=== PATIENT | female | born 1940 | race African-American/Black ===

== ENCOUNTER → 2017-12-23 | Outpatient (CLI) | payer MEDICARE, OTHER | END | disposition home or self-care (01) | LOC: RAD 11:43 | DX: S12.490D Other displaced fracture of fifth cervical vertebra, subsequent encounter for fracture with routine healing (principal); X58.XXXD Exposure to other specified factors, subsequent encounter | CPT/HCPCS: 72040 ==

== ENCOUNTER → 2018-02-02 | Outpatient (CLI) | payer MEDICARE, OTHER | END | disposition home or self-care (01) | LOC: CT 13:22 | DX: S12.490D Other displaced fracture of fifth cervical vertebra, subsequent encounter for fracture with routine healing (principal); X58.XXXD Exposure to other specified factors, subsequent encounter | CPT/HCPCS: 72125 ==

== ENCOUNTER → 2018-05-31 | Outpatient (CLI) | payer MEDICARE, OTHER ==
--- NOTE | 2018-05-31 17:29 | RAD ---
CT of the cervical spine without contrast, 05/31/2018: HISTORY: Follow-up displaced fracture Noncontrast scans were obtained with multiplanar reconstructions produced. Comparison is made to a study from 02/02/2018. There has been previous resection of the C5 and C6 vertebral bodies with placement of a rectangular surgical implant at the vertebral body levels. There is an adjacent anterior surgical plate attached to the C4 and C7 vertebral bodies via 2 screws at each level. The surgical implant at the vertebral body levels is tilted anteriorly, unchanged since 02/02/2018. There are bilateral posterior fixation rods with screws extending into the posterior elements at C2, C3, C6, C7 and T1. The C2-3 and C3-4 facet joints are fused. There are degenerative changes involving multiple facet joints in the mid and lower cervical spine. Some of these lower cervical facet joints may be partially fused. No facet dislocation is seen. Artifacts arising from the fixation devices degrade image quality. No high-grade central spinal stenosis is evident. The vertebral alignment appears unchanged since 02/02/2018. IMPRESSION: 1. Stable anterior and posterior spinal fusions with instrumentation and previous corpectomy at C5 and C6 as described above. 2. No evidence of high-grade spinal stenosis. 3. No new abnormality is detected. PQRS Compliance Statement: One or more of the following individualized dose reduction techniques were utilized for this examination: 1. Automated exposure control 2. Adjustment of the mA and/or kV according to patient size 3. Use of iterative reconstruction technique Electronically signed by: Kyle Angelo MD (05/31/2018 5:26 PM) [facility]
== END | disposition home or self-care (01) ==
LOC: CT 10:29
DX: S12.490D Other displaced fracture of fifth cervical vertebra, subsequent encounter for fracture with routine healing (principal); M47.892 Other spondylosis, cervical region; M43.22 Fusion of spine, cervical region; X58.XXXD Exposure to other specified factors, subsequent encounter
CPT/HCPCS: 72125

== ENCOUNTER → 2019-02-17 | Outpatient (CLI) | payer MEDICARE, OTHER ==
[~2019-02-17] VITALS: Ht 154.9 cm; Wt 45.4 kg
[~2019-02-17] MED LIST: AMLO10TA8 PO; SINCALIDE 0.9 MCG in IV NORMAL SALINE 50ML 30 ML IV ONE
--- NOTE | 2019-02-17 15:13 | RAD ---
HEPATOBILIARY SCAN WITH EJECTION FRACTION 02/17/2019 3:09 PM History: Nausea, vomiting, epigastric pain Procedure: Serial static images are obtained of the liver and biliary system in the frontal projection following IV administration of 5.5 mCi of Technetium 99m Choletec. After filling of the gallbladder, 0.9 mcg of sincalide were infused over 30 minutes and dynamic imaging continued over this period. The gallbladder ejection fraction was calculated. Findings: There is prompt hepatic clearance of tracer from the blood pool. There is homogeneous distribution throughout the liver. The gallbladder ejection fraction measures 51% (normal gallbladder EF is 35% or greater). IMPRESSION: 1. The cystic duct and common bile duct are patent. Negative for acute cholecystitis. 2. The gallbladder ejection fraction is within normal limits Electronically signed by: Zia Zee MD (02/17/2019 3:10 PM) [id number]
--- NOTE | 2019-02-17 16:04 | RAD ---
Limited right upper quadrant abdominal ultrasound 02/17/2019 INDICATION: Nausea, vomiting, epigastric pain COMPARISON STUDY: Hepatobiliary scan, same day Discussion: Ultrasound evaluation of the right upper quadrant was performed. Static images are submitted to PACS. The pancreas is unremarkable in appearance. Visualized aorta and IVC are unremarkable in appearance. Visualized liver is grossly unremarkable in appearance. The liver is normal in size measuring 13 cm longitudinally. No intrahepatic biliary dilatation is identified. Portal vein is grossly patent. The gallbladder demonstrates no evidence of wall thickening, stones, or sludge. The common bile duct is 3 mm in diameter. The right kidney is nonvisualized. Multiple cystic structures involving the left kidney are seen. This could represent marked hydronephrosis, multiple large cysts, or combination there of. Patient is noted to be a chronic renal disease and is dialysis dependent according to technologist's notes. IMPRESSION: 1. Nonvisualization right kidney. Multiple cystic structures involving the left kidney which could be multiple cysts are severe hydronephrosis, or combination there of. Consider abdominal CT imaging as clinically indicated. 2. Grossly unremarkable appearance of the liver and gallbladder Electronically signed by: Zia Zee MD (02/17/2019 4:01 PM) [id number]
== END | disposition home or self-care (01) ==
LOC: US 10:52
PROVIDERS: ATTEND Internal Medicine Gastroenterology
DX: R10.13 Epigastric pain (principal); R11.2 Nausea with vomiting, unspecified; N18.9 Chronic kidney disease, unspecified; Z99.2 Dependence on renal dialysis
CPT/HCPCS: 76705; 78227; A9537; J2805

== ENCOUNTER 2019-09-02 15:35 | Emergency (ER) | payer MEDICARE, OTHER ==
[~2019-09-02] VITALS: Ht 160 cm; Wt 63.5 kg
[~2019-09-02 15:35] MED LIST changes: -SINCALIDE 0.9 MCG in IV NORMAL SALINE 50ML 30 ML IV ONE
[2019-09-02 15:48] VITALS: BP 150/66
--- NOTE | 2019-09-02 16:10 | PHYS DOC ---
Past Medical History Past Medical History: Anxiety, Diabetes-Type II, High Cholesterol, Renal Failure Additional Past Medical Histor: POOR HISTORIAN, hypotension, Iron deficiency anemia, ESRD Past Surgical History: Other Additional Past Surgical Histo: DIALYSIS FISTULA LUE Alcohol Use: None Drug Use: None Adult General Chief Complaint Chief Complaint: ABNORMAL LABS HPI HPI Patient is a 79 year old female from nursing presents via EMS with PMH of ESRD, Iron defiency anemia, Renal failure who presents with abnormal Hgb (unsure specific value). Pt seems confused, only alert and oriented to person. Otherwise, pt has no other complained. Limited history to due pt's AMS. Review of Systems Review of Systems Limited review of systems due to patient's AMS. Allergies Allergies Allergies Coded Allergies Type Severity Reaction Last Updated Verified No Known Drug Allergies 02/17/19 No Physical Exam Physical Exam Constitutional: Well developed, well nourished, no acute distress, non-toxic appearance. [] HENT: Normocephalic, atraumatic, bilateral external ears normal, oropharynx moist, no oral exudates, nose normal. [] Eyes: PERRLA, EOMI, conjunctiva normal, no discharge. [] Neck: Normal range of motion, no tenderness, supple, no stridor. [] Cardiovascular:Heart rate regular rhythm, +3 systolic murmur Lungs & Thorax: Bilateral breath sounds clear to auscultation [] Abdomen: Bowel sounds normal, soft, no tenderness, no masses, no pulsatile masses. [] Skin: Warm, dry, no erythema, no rash. [] Back: No tenderness, no CVA tenderness. +6 midline scars from T1-6 region[] Extremities: No tenderness, no cyanosis, no clubbing, ROM intact, no edema. [] Neurologic: Alert and oriented X 3, normal motor function, normal sensory function, no focal deficits noted. [] Psychologic: Affect normal, judgement normal, mood normal. [] Current Patient Data Vital Signs Vital Signs Date Time Temp Pulse Resp B/P (MAP) Pulse Ox O2 Delivery O2 Flow Rate FiO2 09/02/19 15:48 98.1 60 19 150/66 (94) 98 Room Air 98.1 Lab Values Laboratory Tests Test 09/02/19 16:11 White Blood Count 4.7 x10^3/uL (4.0-11.0) Red Blood Count 2.74 x10^6/uL (3.50-5.40) L Hemoglobin 8.3 g/dL (12.0-15.5) L Hematocrit 24.9 % (36.0-47.0) L Mean Corpuscular Volume 91 fL (79-100) Mean Corpuscular Hemoglobin 30 pg (25-35) Mean Corpuscular Hemoglobin Concent 33 g/dL (31-37) Red Cell Distribution Width 14.4 % (11.5-14.5) Platelet Count 189 x10^3/uL (140-400) Neutrophils (%) (Auto) 66 % (31-73) Lymphocytes (%) (Auto) 24 % (24-48) Monocytes (%) (Auto) 8 % (0-9) Eosinophils (%) (Auto) 2 % (0-3) Basophils (%) (Auto) 0 % (0-3) Neutrophils # (Auto) 3.1 x10^3/uL (1.8-7.7) Lymphocytes # (Auto) 1.1 x10^3/uL (1.0-4.8) Monocytes # (Auto) 0.4 x10^3/uL (0.0-1.1) Eosinophils # (Auto) 0.1 x10^3/uL (0.0-0.7) Basophils # (Auto) 0.0 x10^3/uL (0.0-0.2) Prothrombin Time 13.5 SEC (11.7-14.0) Prothrombin Time INR 1.1 (0.8-1.1) Activated Partial Thromboplast Time 32 SEC (24-38) Sodium Level 143 mmol/L (136-145) Potassium Level 4.4 mmol/L (3.5-5.1) Chloride Level 101 mmol/L (98-107) Carbon Dioxide Level 33 mmol/L (21-32) H Anion Gap 9 (6-14) Blood Urea Nitrogen 35 mg/dL (7-20) H Creatinine 6.4 mg/dL (0.6-1.0) H Estimated GFR (Cockcroft-Gault) 7.6 BUN/Creatinine Ratio 5 (6-20) L Glucose Level 132 mg/dL (70-99) H Lactic Acid Level 1.1 mmol/L (0.4-2.0) Calcium Level 10.7 mg/dL (8.5-10.1) H Magnesium Level 2.5 mg/dL (1.8-2.4) H Total Bilirubin 0.4 mg/dL (0.2-1.0) Aspartate Amino Transferase (AST) 23 U/L (15-37) Alanine Aminotransferase (ALT) 24 U/L (14-59) Alkaline Phosphatase 179 U/L (46-116) H Ammonia < 10 mcmol/L (11-34) L Creatine Kinase 53 U/L (26-192) Creatine Kinase MB (Mass) 0.9 ng/mL (0.0-3.6) Creatine Kinase MB Relative Index % (0-4) Troponin I Quantitative < 0.017 ng/mL (0.000-0.055) Total Protein 6.9 g/dL (6.4-8.2) Albumin 3.5 g/dL (3.4-5.0) Albumin/Globulin Ratio 1.0 (1.0-1.7) Lipase 263 U/L (73-393) Laboratory Tests 09/02/19 16:11 Laboratory Tests 09/02/19 16:11 EKG EKG [] Radiology/Procedures Radiology/Procedures [] Course & Med Decision Making Course & Med Decision Making Pertinent Labs and Imaging studies reviewed. (See chart for details) Patient is a 79 year old female from nursing presents via EMS with PMH of ESRD, Iron defiency anemia, Renal failure who presents with abnormal Hgb (unsure specific value).DDX: Metabolic derangement, Anemia- Iron deficiency vs chronic disease (ESRD), UTI, PNA, sepsis, head trauma. Will order labs, CT head, CXR, EKG. Pt is stable. Will reassess. Labs are unremarkable with Hgb of 8.3. Likely due to her Anemia of Chronic disease. CT and CXR are negative for acute process. Her mentation is most likely at her baseline since CT suggested some chronic lacunar infarct in the left thalamus and chornic microangiopathic white matter changes elsewhere. Pt is stable, has no other complaints. Will discharge pt. Dragon Disclaimer Dragon Disclaimer This electronic medical record was generated, in whole or in part, using a voice recognition dictation system. Departure Departure Impression: Primary Impression: Anemia Additional Impression: ESRD (end stage renal disease) on dialysis Disposition: HOME, SELF-CARE Condition: STABLE Referrals: STEPHANIE RAYMUNDO MD (PCP) MALLORY SPENCER MD Patient Instructions: Anemia, FAQs Problem Qualifiers Primary Impression: Anemia Anemia type: unspecified type Qualified Codes: D64.9 - Anemia, unspecified TOYA LOZOYA DO Sep 02, 2019 16:10
--- NOTE | 2019-09-02 16:16 | PHYS DOC ---
Past Medical History Past Medical History: Anxiety, CHF, COPD, Diabetes-Type II, High Cholesterol, Hypertension, Renal Failure Additional Past Medical Histor: POOR HISTORIAN Past Surgical History: Other Additional Past Surgical Histo: DIALYSIS FISTULA LUE Alcohol Use: None Drug Use: None Adult General Chief Complaint Chief Complaint: ABNORMAL LABS HPI HPI Patient is a 79 year old female with past medical history of COPD, CHF, and diabetes, who presents with altered mental status and abnormal labs after being screened at her shelter. The shelter was primarily concerned with elevated LFT's on her labs. The patient is complaining of diaphoresis, fatigue, and shortness of breath that began yesterday. In addition, she has some mild, right upper quadrant abdominal pain that is described as dull, constant, and unrelieved by any position change. She has intermittent nausea but no vomiting. She denies any diarrhea, dysuria, frequency, or urgency. Review of Systems Review of Systems Constitutional: Reports subjective fevers and chills Eyes: Denies redness or eye pain HENT: Denies nasal congestion or sore throat Respiratory: Reports cough and SOB Cardiovascular: Denies chest pain or palpitations GI: Reports RUQ abdominal pain and nausea, but no vomiting : Denies dysuria or hematuria Musculoskeletal: Denies back pain or joint pain Integument: Denies rash or skin lesions Neurologic: Denies headache, focal weakness or sensory changes Complete systems were reviewed and found to be within normal limits, except as documented in this note. Allergies Allergies Allergies Coded Allergies Type Severity Reaction Last Updated Verified No Known Drug Allergies 02/17/19 No Physical Exam Physical Exam Constitutional: Confused, obese 79 yo female in mild distress. HENT: Normocephalic, atraumatic, oropharynx dry Eyes: conjunctiva normal, no discharge Cardiovascular: Heart rate normal, regular rhythm. 2/6 systolic murmur. Lungs & Thorax: diffuse wheezing b/l. No crackles or consolidations. Abdomen: Soft, TTP in RUQ. Negative lacy's sign. Skin: Warm, diaphoretic. No rashes. Back: No tenderness, no CVA tenderness Extremities: No tenderness, ROM intact, no edema Neurologic: Alert and oriented X 3, normal motor function, normal sensory function, no focal deficits noted Psychologic: Affect normal, judgement normal, mood normal Current Patient Data Vital Signs Vital Signs Date Time Temp Pulse Resp B/P (MAP) Pulse Ox O2 Delivery O2 Flow Rate FiO2 09/02/19 15:48 98.1 60 19 150/66 (94) 98 Room Air 98.1 Lab Values Laboratory Tests Test 09/02/19 16:11 White Blood Count 4.7 x10^3/uL (4.0-11.0) Red Blood Count 2.74 x10^6/uL (3.50-5.40) L Hemoglobin 8.3 g/dL (12.0-15.5) L Hematocrit 24.9 % (36.0-47.0) L Mean Corpuscular Volume 91 fL (79-100) Mean Corpuscular Hemoglobin 30 pg (25-35) Mean Corpuscular Hemoglobin Concent 33 g/dL (31-37) Red Cell Distribution Width 14.4 % (11.5-14.5) Platelet Count 189 x10^3/uL (140-400) Neutrophils (%) (Auto) 66 % (31-73) Lymphocytes (%) (Auto) 24 % (24-48) Monocytes (%) (Auto) 8 % (0-9) Eosinophils (%) (Auto) 2 % (0-3) Basophils (%) (Auto) 0 % (0-3) Neutrophils # (Auto) 3.1 x10^3/uL (1.8-7.7) Lymphocytes # (Auto) 1.1 x10^3/uL (1.0-4.8) Monocytes # (Auto) 0.4 x10^3/uL (0.0-1.1) Eosinophils # (Auto) 0.1 x10^3/uL (0.0-0.7) Basophils # (Auto) 0.0 x10^3/uL (0.0-0.2) Prothrombin Time 13.5 SEC (11.7-14.0) Prothrombin Time INR 1.1 (0.8-1.1) Activated Partial Thromboplast Time 32 SEC (24-38) Sodium Level 143 mmol/L (136-145) Potassium Level 4.4 mmol/L (3.5-5.1) Chloride Level 101 mmol/L (98-107) Carbon Dioxide Level 33 mmol/L (21-32) H Anion Gap 9 (6-14) Blood Urea Nitrogen 35 mg/dL (7-20) H Creatinine 6.4 mg/dL (0.6-1.0) H Estimated GFR (Cockcroft-Gault) 7.6 BUN/Creatinine Ratio 5 (6-20) L Glucose Level 132 mg/dL (70-99) H Lactic Acid Level 1.1 mmol/L (0.4-2.0) Calcium Level 10.7 mg/dL (8.5-10.1) H Magnesium Level 2.5 mg/dL (1.8-2.4) H Total Bilirubin 0.4 mg/dL (0.2-1.0) Aspartate Amino Transferase (AST) 23 U/L (15-37) Alanine Aminotransferase (ALT) 24 U/L (14-59) Alkaline Phosphatase 179 U/L (46-116) H Creatine Kinase 53 U/L (26-192) Creatine Kinase MB (Mass) 0.9 ng/mL (0.0-3.6) Creatine Kinase MB Relative Index % (0-4) Troponin I Quantitative < 0.017 ng/mL (0.000-0.055) Total Protein 6.9 g/dL (6.4-8.2) Albumin 3.5 g/dL (3.4-5.0) Albumin/Globulin Ratio 1.0 (1.0-1.7) Lipase 263 U/L (73-393) Laboratory Tests 09/02/19 16:11 Laboratory Tests 09/02/19 16:11 EKG EKG [] Radiology/Procedures Radiology/Procedures [] Course & Med Decision Making Course & Med Decision Making Patient is a 79-year-old female with past medical history of diabetes mellitus, hypertension, COPD, and who presents with altered mental status and abnormal labs from her shelter. The patient is diaphoretic and short of breath upon arrival. However, she is currently satting at 94% on 4 L of oxygen. Due to concern for hepatic encephalopathy, ammonia levels were drawn and found to be CT of the head demonstrated that family milliliters normal saline given to improve hydration status. Dragon Disclaimer Dragon Disclaimer This electronic medical record was generated, in whole or in part, using a voice recognition dictation system. Departure Departure Referrals: STEPHANIE RAYMNUDO MD (PCP) TOYA LOZOYA DO Sep 02, 2019 16:16
--- NOTE | 2019-09-02 16:28 | RAD ---
Single view of the chest. 09/02/2019 3:58 PM Indication: Altered mental status Comparison: None available Findings: The heart is enlarged. Prior median sternotomy noted. Left axillary stent is noted. Mild central vascular congestion appears to be present. Left upper extremity vascular stent noted. Patient is likely on chronic hemodialysis. Extensive vascular calcification is seen. No pneumothorax or pleural effusion is seen. Right-sided chest wall deformity suggesting prior rib fractures noted. No definitively acute osseous abnormality is not identified. IMPRESSION: 1. Cardiomegaly, and mild central vascular congestion, in this patient with probable chronic renal failure necessitating dialysis 2. Chronic appearing right-sided chest wall deformity. Electronically signed by: Zia Zee MD (09/02/2019 4:25 PM) [id number]
[2019-09-02 16:35] LABS: BASO % 0 % (0-3); EOS # 0.1 x10^3/uL (0.0-0.7); EOS % 2 % (0-3); HEMATOCRIT 24.9 % (36.0-47.0); HEMOGLOBIN 8.3 g/dL (12.0-15.5); LYMPH # 1.1 x10^3/uL (1.0-4.8); LYMPH % 24 % (24-48); MEAN CORPUSCULAR HEMOGLOBIN 30 pg (25-35); MEAN CORPUSCULAR HGB CONC 33 g/dL (31-37); MEAN CORPUSCULAR VOLUME 91 fL (79-100); MONO # 0.4 x10^3/uL (0.0-1.1); MONO % 8 % (0-9); NEUT # 3.1 x10^3/uL (1.8-7.7); NEUT % 66 % (31-73); PLATELET COUNT 189 x10^3/uL (140-400); RED BLOOD COUNT 2.74 x10^6/uL (3.50-5.40); RED CELL DISTRIBUTION WIDTH 14.4 % (11.5-14.5); WHITE BLOOD COUNT 4.7 x10^3/uL (4.0-11.0)
[2019-09-02 16:40] LABS: PROTHROMBIN TIME PATIENT 13.5 SEC (11.7-14.0)
[2019-09-02 16:47] LABS: CALCIUM 10.7 mg/dL (8.5-10.1); CREATININE 6.4 mg/dL (0.6-1.0); GFR 7.6; POTASSIUM 4.4 mmol/L (3.5-5.1)
--- NOTE | 2019-09-02 16:54 | RAD ---
EXAM: CT HEAD WITHOUT CONTRAST. HISTORY: Altered mental status. TECHNIQUE: Computed tomography of the head was performed without intravenous contrast. One or more of the following individualized dose reduction techniques were utilized for this examination: 1. Automated exposure control. 2. Adjustment of the mA and/or kV according to patient size. 3. Use of iterative reconstruction technique. COMPARISON: None. FINDINGS: There is no intracranial hemorrhage. There is a chronic lacunar infarct in the left anterior thalamus. There is mild chronic microangiopathic white matter change elsewhere. Prominence of the lateral ventricles and hemispheric sulci indicates mild to moderate atrophy. There is a chronic a depressed fracture of the right lamina papyracea. There are air-fluid levels within the sphenoid sinus and the bilateral ethmoid air cells. There are changes of bilateral cataract surgery. There is moderate fluid in the right mastoid air cells. The calvarium reveals no suspicious lesions. There are dense atherosclerotic calcifications of the internal carotid and vertebral arteries. IMPRESSION: 1. No acute intracranial findings. 2. Chronic left thalamic infarct. Mild to moderate atrophy and chronic microangiopathic white matter change. 3. Acute on chronic ethmoid and sphenoid sinus disease. Electronically signed by: Ramakrishna Pittman MD (09/02/2019 4:51 PM) [email or web address]
[2019-09-02 16:57] LABS: ALBUMIN 3.5 g/dL (3.4-5.0); MAGNESIUM 2.5 mg/dL (1.8-2.4); TOTAL BILIRUBIN 0.4 mg/dL (0.2-1.0); TOTAL PROTEIN 6.9 g/dL (6.4-8.2)
[2019-09-02 16:58] LABS: CREATINE KINASE 53 U/L (26-192)
== END 2019-09-02 18:35 | disposition home or self-care (01) ==
LOC: ER 15:35
DX: D64.9 Anemia, unspecified (principal); E11.22 Type 2 diabetes mellitus with diabetic chronic kidney disease; N18.6 End stage renal disease; Z99.2 Dependence on renal dialysis; E78.00 Pure hypercholesterolemia, unspecified; Z86.2 Personal history of diseases of the blood and blood-forming organs and certain disorders involving the immune mechanism
CPT/HCPCS: 36415; 70450; 71045; 80053; 82140; 82553; 83605; 83690; 83735; 84484; 85025; 85610; 85730; 99285

== ENCOUNTER 2019-12-03 21:47 | Emergency (ER) | payer MEDICARE, OTHER ==
[~2019-12-03] VITALS: Ht 160 cm; Wt 45.0 kg
--- NOTE | 2019-12-03 22:02 | PHYS DOC ---
Past Medical History Past Medical History: Anxiety, CHF, COPD, Dementia, Diabetes-Type II, High Cholesterol, Hypertension, Renal Failure Additional Past Medical Histor: POOR HISTORIAN, hypotension, Iron deficiency anemia, ESRD Past Surgical History: Other Additional Past Surgical Histo: DIALYSIS FISTULA LUE Smoking Status: Never Smoker Alcohol Use: None Drug Use: None Adult General Chief Complaint Chief Complaint: MECHANICAL FALL HPI HPI 79-year-old dementia patient from a detention presents after an unwitnessed f all. They think she hit her head they're unsure if there was loss of consciousness. Patient is unable to provide any history but does not report any pain currently.[] Review of Systems Review of Systems Review of systems is unobtainable secondary to dementia. Allergies Allergies Allergies Coded Allergies Type Severity Reaction Last Updated Verified No Known Drug Allergies 02/17/19 No Physical Exam Physical Exam Constitutional: Well developed, well nourished, no acute distress, non-toxic appearance. [] HENT: Normocephalic, atraumatic, bilateral external ears normal, oropharynx moist, no oral exudates, nose normal. [] Eyes: PERRLA, EOMI, conjunctiva normal, no discharge. [] Neck: Normal range of motion, no tenderness, supple, no stridor. [] Cardiovascular:Heart rate regular rhythm, no murmur [] Lungs & Thorax: Bilateral breath sounds clear to auscultation [] Abdomen: Bowel sounds normal, soft, no tenderness, no masses, no pulsatile masses. [] Skin: Warm, dry, no erythema, no rash. [] Back: No tenderness, no CVA tenderness. [] Extremities: No tenderness, no cyanosis, no clubbing, ROM intact, no edema. [] Neurologic: Alert and not oriented At baseline, normal motor function, normal sensory function, no focal deficits noted. [] Psychologic: Affect normal, judgement normal, mood normal. [] Current Patient Data Vital Signs Vital Signs Date Time Temp Pulse Resp B/P (MAP) Pulse Ox O2 Delivery O2 Flow Rate FiO2 12/03/19 22:02 98.1 78 12 198/81 (120) 98 Room Air 98.1 EKG EKG [] Radiology/Procedures Radiology/Procedures [] Impressions: PROCEDURE: CT HEAD AND CERVICAL SPINE WO CT brain without contrast, CT cervical spine without contrast. HISTORY: Trauma CT brain CT scan of brain was done without contrast. Sinuses are clear. A skull fracture is not identified. There is mild diffuse atrophy. There is no intracranial hemorrhage or subdural hematoma. Ventricles are normal in size. There is no mass or shift of the midline. There is an old infarct in the left thalamus and left internal capsule. IMPRESSION: 1. Old left thalamus and internal capsule infarct. 2. no intracranial hemorrhage or subdural hematoma or other acute finding. End impression CT cervical spine. Axial CT images were obtained to the cervical spine. Sagittal and coronal reconstructed images were reviewed. Patient previous posterior cervical fusion. There are also changes from previous anterior cervical fusion. The patient's had a sternotomy. There is bony fusion at the facet level from C2 to C7. There is an bone graft anteriorly between C4 and C7. An acute C-spine fracture is not identified. The artifacts off the plates and screws limit evaluation. There is been increased bony fusion compared with a study from May 2018. Alignment is unchanged. IMPRESSION: 1. Changes from previous anterior posterior fusions. 2. No acute C-spine fracture. Course & Med Decision Making Course & Med Decision Making Pertinent Labs and Imaging studies reviewed. (See chart for details) [] Dragon Disclaimer Dragon Disclaimer This electronic medical record was generated, in whole or in part, using a voice recognition dictation system. Departure Departure Impression: Primary Impression: Fall at detention Disposition: 01 HOME, SELF-CARE Condition: STABLE Referrals: STEPHANIE RAYMUNDO MD (PCP) Patient Instructions: Fall Prevention and Home Safety Problem Qualifiers Primary Impression: Fall at detention Encounter type: initial encounter Qualified Codes: W19.XXXA - Unspecified fall, initial encounter; Y92.129 - Unspecified place in detention as the place of occurrence of the external cause JUDSON URENA DO Dec 03, 2019 22:02
--- NOTE | 2019-12-03 22:44 | RAD ---
CT brain without contrast, CT cervical spine without contrast. HISTORY: Trauma CT brain CT scan of brain was done without contrast. Sinuses are clear. A skull fracture is not identified. There is mild diffuse atrophy. There is no intracranial hemorrhage or subdural hematoma. Ventricles are normal in size. There is no mass or shift of the midline. There is an old infarct in the left thalamus and left internal capsule. IMPRESSION: 1. Old left thalamus and internal capsule infarct. 2. no intracranial hemorrhage or subdural hematoma or other acute finding. End impression CT cervical spine. Axial CT images were obtained to the cervical spine. Sagittal and coronal reconstructed images were reviewed. Patient previous posterior cervical fusion. There are also changes from previous anterior cervical fusion. The patient's had a sternotomy. There is bony fusion at the facet level from C2 to C7. There is an bone graft anteriorly between C4 and C7. An acute C-spine fracture is not identified. The artifacts off the plates and screws limit evaluation. There is been increased bony fusion compared with a study from May 2018. Alignment is unchanged. IMPRESSION: 1. Changes from previous anterior posterior fusions. 2. No acute C-spine fracture. Electronically signed by: Scott Cerrato MD (12/03/2019 10:40 PM) [id number]
[2019-12-04 00:18] VITALS: BP 160/70
== END 2019-12-04 00:20 | disposition home or self-care (01) ==
LOC: ER 21:47
DX: S09.90XA Unspecified injury of head, initial encounter (principal); E11.22 Type 2 diabetes mellitus with diabetic chronic kidney disease; I13.11 Hypertensive heart and chronic kidney disease without heart failure, with stage 5 chronic kidney disease, or end stage renal disease; I50.9 Heart failure, unspecified; J44.9 Chronic obstructive pulmonary disease, unspecified; E78.00 Pure hypercholesterolemia, unspecified; N18.6 End stage renal disease; Z99.2 Dependence on renal dialysis; W18.39XA Other fall on same level, initial encounter; Y93.89 Activity, other specified; Y92.89 Other specified places as the place of occurrence of the external cause; Y99.8 Other external cause status
CPT/HCPCS: 70450; 72125; 99285-25

== ENCOUNTER → 2019-12-15 | Emergency (ER) | payer MEDICARE, OTHER ==
[~2019-12-15] VITALS: Ht 162.6 cm; Wt 98.0 kg
[2019-12-15 21:29] VITALS: BP 156/86
--- NOTE | 2019-12-15 23:39 | ED.ADGEN ---
Past Medical History Past Medical History: Unknown Additional Past Medical Histor: POOR HISTORIAN, hypotension, Iron deficiency anemia, ESRD Past Surgical History: Other Additional Past Surgical Histo: DIALYSIS FISTULA LUE Smoking Status: Never Smoker Alcohol Use: None Drug Use: None Adult General Chief Complaint Chief Complaint: OTHER COMPLAINTS HPI HPI Patient is a 79 year old [facility] patient presents from outside snf facility who presents without chief complaint.of SOA patient is sensitive facility that has recovered virus. Patient has been tested and was found to be negative. CV no upon returning home from dialysis, the patient was accidentally dropped off at the [facility] facility. Upon discovering this, nursing unit coordinator immediately called EMS for the patient to be taken off premises. Patient did not request transfer to the ED, but according to EMS protocol this is the only as the patient could be brought. Patient is requesting transportation to the correct snf facility. Other than feeling cold due to the ambient temperature at the patient is without complaint and declines medical evaluation. [] Review of Systems Review of Systems ROS as per HPI. All other ROS are negative. Allergies Allergies Allergies Coded Allergies Type Severity Reaction Last Updated Verified No Known Drug Allergies 02/17/19 No Physical Exam Physical Exam Constitutional: Well developed, well nourished, no acute distress, non-toxic appearance. [] HENT: Normocephalic, atraumatic, bilateral external ears normal, oropharynx moist,, nose normal. [] Eyes: PERRLA, EOMI, conjunctiva normal. [] Neck: Normal range of motion, no tenderness, supple, no stridor. [] Cardiovascular:Heart rate regular rhythm, no murmur [] Lungs & Thorax: Bilateral breath sounds clear to auscultation [] Abdomen: Bowel sounds normal, soft, no tenderness, no masses, no pulsatile masses. [] Neurologic: Alert and oriented X 3, normal motor function, normal sensory function, no focal deficits noted. [] Psychologic: Affect normal, judgement normal, mood normal. [] Current Patient Data Vital Signs Vital Signs Date Time Temp Pulse Resp B/P (MAP) Pulse Ox O2 Delivery O2 Flow Rate FiO2 12/15/19 21:29 98.4 88 18 156/86 (109) 97 Room Air 98.4 EKG EKG [] Radiology/Procedures Radiology/Procedures [] Course & Med Decision Making Course & Med Decision Making Pertinent Labs and Imaging studies reviewed. (See chart for details) No complaints. Medical screening unremarkable. ] Dragon Disclaimer Dragon Disclaimer This electronic medical record was generated, in whole or in part, using a voice recognition dictation system. Departure Departure Impression: Primary Impression: Encounter for medical screening examination Disposition: HOME, SELF-CARE Condition: STABLE Referrals: STEPHANIE RAYMUNDO MD (PCP) KAYDEN MARTINEZ DO Dec 15, 2019 23:39
== END ==
LOC: ER 21:26
DX: R06.02 Shortness of breath (principal); N18.6 End stage renal disease; Z99.2 Dependence on renal dialysis
CPT/HCPCS: 99284

== ENCOUNTER 2019-12-20 12:36 | Emergency (ER) | payer MEDICARE, OTHER ==
[~2019-12-20] VITALS: Ht 152.4 cm; Wt 43.0 kg
[2019-12-20] MEDS ORDERED: IV NORMAL SALINE 1000ML BAG 1,000 ML IV ONE (13:00)
[2019-12-20 13:12] LABS: BASO % 1 % (0-3); EOS % 0 % (0-3); HEMATOCRIT 42.5 % (36.0-47.0); HEMOGLOBIN 13.6 g/dL (12.0-15.5); LYMPH # 0.6 x10^3/uL (1.0-4.8); LYMPH % 15 % (24-48); MEAN CORPUSCULAR HEMOGLOBIN 28 pg (25-35); MEAN CORPUSCULAR HGB CONC 32 g/dL (31-37); MEAN CORPUSCULAR VOLUME 86 fL (79-100); MONO # 0.2 x10^3/uL (0.0-1.1); MONO % 6 % (0-9); NEUT # 3.3 x10^3/uL (1.8-7.7); NEUT % 79 % (31-73); PLATELET COUNT 124 x10^3/uL (140-400); RED BLOOD COUNT 4.95 x10^6/uL (3.50-5.40); RED CELL DISTRIBUTION WIDTH 16.7 % (11.5-14.5); WHITE BLOOD COUNT 4.2 x10^3/uL (4.0-11.0)
--- NOTE | 2019-12-20 13:22 | EKG ---
[facility] [address] [place] [address] Test Date: 2019-12-20 Test Time: 12:48:14 Pat Name: JYOTI BARNEY Department: Room: Gender: F Continuing Education Director: : 1940 Requested By: PAYAM JOSUE Order Number: [id number] Reading MD: Shay Gutierrez Measurements Intervals [place] Rate: 69 P: [place]: QRS: 112 QRSD: 100 T: 172 QT: 402 QTc: 436 Interpretive Statements SINUS RHYTHM ABNORMAL RIGHT AXIS DEVIATION INCOMPLETE RIGHT BUNDLE BRANCH BLOCK QRS(T) CONTOUR ABNORMALITY CONSIDER HIGH LATERAL INFARCT ST & T ABNORMALITY, CONSIDER INFERIOR ISCHEMIA OR LEFT VENTRICULAR STRAIN ABNORMAL ECG No previous ECG available for comparison Electronically Signed On 12-21-2019 8:44:16 CDT by Shay Gutierrez
[2019-12-20 13:28] LABS: CALCIUM 8.9 mg/dL (8.5-10.1); CREATININE 11.2 mg/dL (0.6-1.0); POTASSIUM 4.5 mmol/L (3.5-5.1)
--- NOTE | 2019-12-20 13:28 | PHYS DOC ---
Past Medical History Past Medical History: Unknown Additional Past Medical Histor: POOR HISTORIAN, hypotension, Iron deficiency anemia, ESRD Past Surgical History: Other Additional Past Surgical Histo: DIALYSIS FISTULA LUE Smoking Status: Never Smoker Alcohol Use: None Drug Use: None General Adult EDM: Chief Complaint: DIALYSIS PROBLEM HPI: HPI: Patient is a 79 year old female with history of end-stage kidney disease on dialysis Thu, Thu, Thursday currently residing at [facility] COVID 19 + who presents to the ED today to be dialyzed. Per [facility]iary staff patient missed dialysis yesterday because the dialyze center she goes to could not dialyze her because she is COVID19 positive. Patient is demented and a very poor historian. She has no complaint. Review of Systems: Review of Systems: Constitutional: Denies fever or chills. [] Eyes: Denies change in visual acuity. [] HENT: Denies nasal congestion or sore throat. [] Respiratory: Denies cough or shortness of breath. [] Cardiovascular: Denies chest pain or edema. [] GI: Denies abdominal pain, nausea, vomiting, bloody stools or diarrhea. [] : Denies dysuria. [] Musculoskeletal: Denies back pain or joint pain. [] Integument: Denies rash. [] Neurologic: Denies headache, focal weakness or sensory changes. [] Endocrine: ESRD Psychiatric: Denies depression or anxiety. [] Heart Score: Risk Factors: Risk Factors: DM, Current or recent (<one month) smoker, HTN, HLP, family history of CAD, obesity. Risk Scores: Score 0 - 3: 2.5% MACE over next 6 weeks - Discharge Home Score 4 - 6: 20.3% MACE over next 6 weeks - Admit for Clinical Observation Score 7 - 10: 72.7% MACE over next 6 weeks - Early Invasive Strategies Current Medications: Current Medications Medications (Trade) Dose Ordered Sig/Yael Start Time Stop Time Status Last Admin Dose Admin Sodium Chloride 1,000 ml @ 75 mls/hr 1X ONCE 12/20/19 13:00 12/21/19 02:19 12/20/19 13:15 75 MLS/HR Allergies: Allergies: Allergies Coded Allergies Type Severity Reaction Last Updated Verified No Known Drug Allergies 02/17/19 No Physical Exam: PE: Constitutional: Well developed, well nourished, no acute distress, non-toxic appearance. [] HENT: Normocephalic, atraumatic, bilateral external ears normal, oropharynx moist, no oral exudates, nose normal. [] Eyes: PERRLA, EOMI, conjunctiva normal, no discharge. [] Neck: Normal range of motion, no tenderness, supple, no stridor. [] Cardiovascular:Heart rate regular rhythm, no murmur [] Lungs & Thorax: Bilateral breath sounds clear to auscultation [] Abdomen: Bowel sounds normal, soft, no tenderness, no masses, no pulsatile masses. [] Skin: Warm, dry, no erythema, no rash. [] Back: No tenderness, no CVA tenderness. [] Extremities: No tenderness, no cyanosis, no clubbing, ROM intact, no edema. [] Neurologic: Alert and oriented X 1, normal motor function, normal sensory function, no focal deficits noted. [] Psychologic: Affect normal, judgement normal, mood normal. [] Current Patient Data: Labs: Laboratory Tests Test 12/20/19 13:00 White Blood Count 4.2 x10^3/uL (4.0-11.0) Red Blood Count 4.95 x10^6/uL (3.50-5.40) Hemoglobin 13.6 g/dL (12.0-15.5) Hematocrit 42.5 % (36.0-47.0) Mean Corpuscular Volume 86 fL (79-100) Mean Corpuscular Hemoglobin 28 pg (25-35) Mean Corpuscular Hemoglobin Concent 32 g/dL (31-37) Red Cell Distribution Width 16.7 % (11.5-14.5) H Platelet Count 124 x10^3/uL (140-400) L Neutrophils (%) (Auto) 79 % (31-73) H Lymphocytes (%) (Auto) 15 % (24-48) L Monocytes (%) (Auto) 6 % (0-9) Eosinophils (%) (Auto) 0 % (0-3) Basophils (%) (Auto) 1 % (0-3) Neutrophils # (Auto) 3.3 x10^3/uL (1.8-7.7) Lymphocytes # (Auto) 0.6 x10^3/uL (1.0-4.8) L Monocytes # (Auto) 0.2 x10^3/uL (0.0-1.1) Eosinophils # (Auto) 0.0 x10^3/uL (0.0-0.7) Basophils # (Auto) 0.0 x10^3/uL (0.0-0.2) Laboratory Tests 12/20/19 13:00 EKG: EK Interpreted by Dr. Jimenez sinus rhythm HR 70 no STEMI[] Radiology/Procedures: Radiology/Procedures: []PROCEDURE: PORTABLE CHEST 1V EXAM: CHEST 1 VIEW History: Cough COMPARISON: 09/02/2019 TECHNIQUE: Single portable radiograph of the chest FINDINGS: The cardiac silhouette is unremarkable. The lungs are clear bilaterally. The costophrenic sulci are clear and well demarcated. Median sternotomy wires identified. Left-sided vascular stents are identified. IMPRESSION: No radiographic evidence of an acute cardiopulmonary process. Electronically signed by: Pacheco Nance MD (12/20/2019 1:37 PM) [id number] DICTATED and SIGNED BY: PACHECO NANCE MD DATE: 12/20/19 1337 Course & Med Decision Making: Course & Med Decision Making Pertinent Labs and Imaging studies reviewed. (See chart for details) This is a 79-year-old female patient in the ED to be evaluated after missing dialysis yesterday, nursing staff reports the dialysis center she goes to will not dialyze her because she is COVID 19 positive. Chest x-ray is negative, CBC with no acute findings, CMP with normal potassium, creatinine and BUN consistent with chronic kidney failure. EKG is negative. [facility]. Pritesh Disclaimer: Pritesh Disclaimer: This electronic medical record was generated, in whole or in part, using a voice recognition dictation system. COVID-19 Patient Risks: Age 65 or older: Yes Sign of co-morbidity: Yes Exp to person + for COVID: Yes Exp to PUI: Yes Travel from affected area: No Lower respiratory symptoms: Yes Fever: No Other: Yes (COVID +) PPE Use: Full PPE with N95 mask or PAPR: Yes Departure Departure Impression: Primary Impression: ESRD (end stage renal disease) on dialysis Disposition: HOME, SELF-CARE Condition: STABLE Referrals: STEPHANIE RAYMUNDO MD (PCP) follow up with your doctor in 1 week Patient Instructions: Dialysis, End Stage Kidney Disease Additional Instructions: Your potassium was normal in the emergency room the rest of your labs were negative for any acute findings. You can have your dialysis done tomorrow PAYAM JOSUE APRN Dec 20, 2019 13:28
[2019-12-20 13:34] LABS: ALBUMIN 3.4 g/dL (3.4-5.0); ALBUMIN/GLOBULIN RATIO 0.9 (1.0-1.7); MAGNESIUM 2.7 mg/dL (1.8-2.4); TOTAL BILIRUBIN 0.5 mg/dL (0.2-1.0)
[2019-12-20] MEDS ORDERED: ACETAMINOPHEN 650 MG SUPP.RECT. ONE (13:35)
--- NOTE | 2019-12-20 13:40 | RAD ---
EXAM: CHEST 1 VIEW History: Cough COMPARISON: 09/02/2019 TECHNIQUE: Single portable radiograph of the chest FINDINGS: The cardiac silhouette is unremarkable. The lungs are clear bilaterally. The costophrenic sulci are clear and well demarcated. Median sternotomy wires identified. Left-sided vascular stents are identified. IMPRESSION: No radiographic evidence of an acute cardiopulmonary process. Electronically signed by: Pacheco Nance MD (12/20/2019 1:37 PM) [id number]
[2019-12-20 15:09] VITALS: BP 104/52
[2019-12-22] MEDS ORDERED: LOSA-73 PO (18:20)
[2019-12-22] MEDS ORDERED: SEVE800T8 PO (18:20)
[2019-12-22] MEDS ORDERED: CINA60TA PO (18:20)
[2019-12-22] MEDS ORDERED: DICL100G18 TP (18:20)
[2019-12-22] MEDS ORDERED: ATOR40TA59 PO (18:20)
[2019-12-22] MEDS ORDERED: FOLI1CAP10 PO (18:20)
[2019-12-22] MEDS ORDERED: MELA5CAP PO (18:20)
[2019-12-22] MEDS ORDERED: SERT25TA PO (18:20)
[2019-12-22] MEDS ORDERED: ACET325T9 PO (18:20)
[2019-12-22] MEDS ORDERED: LEVO50TA5 PO (18:20)
[2019-12-22] MEDS ORDERED: FAMO20TA5 PO (18:20)
== END 2019-12-20 15:30 | disposition home or self-care (01) ==
LOC: ER 12:36
DX: N18.6 End stage renal disease (principal); I95.9 Hypotension, unspecified; Z98.890 Other specified postprocedural states
CPT/HCPCS: 36415; 71045; 80053; 82553; 83605; 83735; 83880; 84145; 84443; 84484; 85025; 87040; 93005; 99285; J7030

== ENCOUNTER 2021-07-07 14:42 | Emergency (ER) | payer MEDICARE, OTHER ==
[~2021-07-07] VITALS: Ht 157.5 cm; Wt 125.0 kg
[~2021-07-07 14:42] MED LIST changes: +ACET325T9 PO; +ALBU2.5V8 NEB; +AMLO-187 PO; -AMLO10TA8 PO; +ASCO500T4 PO; +ATOR40TA59 PO; +CINA60TA PO; +DICL100G54 TP; +FAMO20TA5 PO; +FOLI1CAP10 PO; +LACT1CAP19 PO; +LEVO50TA5 PO; +LOSA-73 PO; +MELA5CAP PO; +SERT25TA PO; +SEVE800T8 PO; +ZINC220C2 PO
--- NOTE | 2021-07-07 15:16 | RAD ---
CT HEAD/BRAIN WO History: Reason: AMS / Spl. Instructions: / History: Comparison: None. Technique: Noncontrast CT imaging was performed of the head. Exposure: One or more of the following individualized dose reduction techniques were utilized for thi s examination: 1. Automated exposure control 2. Adjustment of the mA and/or kV according to patient size 3. Use of iterative reconstruction technique. Findings: No intracranial hemorrhage. No mass effect. No hydrocephalus. Mild brain parenchymal volume loss. Chronic right thalamic lacunar infarct. Imaged orbits are unremarkable. Paranasal sinuses are clear. Mild right mastoid effusion. TMJ arthrop athy. Postop changes cervical spine partially imaged. No acute calvarial fracture. Impression: 1. No acute intracranial abnormality. Electronically signed by: Vlad Mcneill DO (07/07/2021 3:13 PM) [facility]
--- NOTE | 2021-07-07 15:40 | RAD ---
XR CHEST 1V History: Reason: ams / Spl. Instructions: / History: Comparison: December 22, 2019 Findings: Mild reticular interstitial thickening bilaterally. No pleural effusion. No pneumothorax. Prior media n sternotomy. Unchanged heart size. Vascular stent projecting over the axillary regions. Impression: 1. Mild diffuse reticular interstitial thickening, may relate to chronic interstitial changes althou gh superimposed pulmonary edema is possible. Electronically signed by: Vlad Mcneill DO (07/07/2021 3:38 PM) [facility]
--- NOTE | 2021-07-07 15:41 | PHYS DOC ---
Past Medical History Past Medical History: Renal Failure, Unknown Additional Past Medical Histor: POOR HISTORIAN, hypotension, Iron deficiency anemia, ESRD, PVD, LBBB Past Surgical History: Other Additional Past Surgical Histo: DIALYSIS FISTULA LUE Smoking Status: Never Smoker Alcohol Use: None Drug Use: None General Adult EDM: Chief Complaint: ALTERED MENTAL STATUS HPI: HPI: Patient is a 81 year old female with history of end-stage kidney disease on dialysis unknown the last time she was dialyzed, patient presents to the ED today via EMS from [facility] to be evaluated for decreased level of consciousness. Patient is not able to give us any history. They state her baseline is answering yes and no questions. Currently not answering any questions or following directions Review of Systems: Review of Systems: Constitutional: Unable to assess due to patient's mentation HENT: Unable to assess due to patient's mentation Respiratory: Unable to assess due to patient's mentation Cardiovascular: Unable to assess due to patient's mentation GI: []Unable to assess due to patient's mentation : Unable to assess due to patient's mentation Musculoskeletal: Unable to assess due to patient's mentation Integument: Unable to assess due to patient's mentation Neurologic: EMS reports decreased level of consciousness Endocrine: ESRD Psychiatric: Unable to assess due to patient's mentation Heart Score: C/O Chest Pain: N/A Risk Factors: Risk Factors: DM, Current or recent (<one month) smoker, HTN, HLP, family history of CAD, obesity. Risk Scores: Score 0 - 3: 2.5% MACE over next 6 weeks - Discharge Home Score 4 - 6: 20.3% MACE over next 6 weeks - Admit for Clinical Observation Score 7 - 10: 72.7% MACE over next 6 weeks - Early Invasive Strategies Allergies: Allergies: Allergies Coded Allergies Type Severity Reaction Last Updated Verified No Known Drug Allergies 02/17/19 No Physical Exam: PE: Constitutional: Well developed, well nourished, no acute distress, non-toxic appearance. [] HENT: Normocephalic, atraumatic, bilateral external ears normal, oropharynx moist, no oral exudates, nose normal. [] Eyes: PERRLA, EOMI, conjunctiva normal, no discharge. [] Neck: Normal range of motion, no tenderness, supple, no stridor. [] Cardiovascular:Heart rate regular rhythm, old dialysis fistula noted on the left upper extremity not working, new dialysis fistula on the right upper extremity with positive bruit on. Lungs & Thorax: Bilateral breath sounds clear to auscultation [] Abdomen: Bowel sounds normal, soft, no tenderness, no masses, no pulsatile masses. [] Skin: Warm, dry, no erythema, no rash. [] Back: No tenderness, no CVA tenderness. [] Extremities: No tenderness, no cyanosis, no clubbing, ROM intact, no edema. [] Neurologic: Lethargic, responsive to pain stimulus Current Patient Data: Vital Signs: Vital Signs Date Time Temp Pulse Resp B/P (MAP) Pulse Ox O2 Delivery O2 Flow Rate FiO2 07/07/21 14:50 97.1 59 14 112/51 (71) 98 Nasal Cannula 2.0 97.1 EKG: EK interpreted by Dr. Liu sinus rhythm heart rate 57 no STEMI [] Radiology/Procedures: Radiology/Procedures: PROCEDURE: PORTABLE CHEST 1V XR CHEST 1V History: Reason: ams / Spl. Instructions: / History: Comparison: December 22, 2019 Findings: Mild reticular interstitial thickening bilaterally. No pleural effusion. No pneumothorax. Prior median sternotomy. Unchanged heart size. Vascular stent projecting over the axillary regions. Impression: 1. Mild diffuse reticular interstitial thickening, may relate to chronic interstitial changes although superimposed pulmonary edema is possible. Electronically signed by: Basim Camarillo DO (07/07/2021 3:38 PM) [facility] DICTATED and SIGNED BY: BASIM CAMARILLO DO DATE: 07/07/21 [id number] PROCEDURE: CT HEAD WO CONTRAST CT HEAD/BRAIN WO History: Reason: AMS / Spl. Instructions: / History: Comparison: None. Technique: Noncontrast CT imaging was performed of the head. Exposure: One or more of the following individualized dose reduction techniques were utilized for this examination: 1. Automated exposure control 2. Adjustment of the mA and/or kV according to patient size 3. Use of iterative reconstruction technique. Findings: No intracranial hemorrhage. No mass effect. No hydrocephalus. Mild brain parenchymal volume loss. Chronic right thalamic lacunar infarct. Imaged orbits are unremarkable. Paranasal sinuses are clear. Mild right mastoid effusion. TMJ arthropathy. Postop changes cervical spine partially imaged. No acute calvarial fracture. Impression: 1. No acute intracranial abnormality. Electronically signed by: Basim Camarillo DO (07/07/2021 3:13 PM) [facility] DICTATED and SIGNED BY: BASIM CAMARILLO DO DATE: 07/07/21 [id number] Course & Med Decision Making: Course & Med Decision Making Pertinent Labs and Imaging studies reviewed. (See chart for details) This is a 81-year-old female patient [facility] to be evaluated for decreased level of consciousness. Patient apparently can answer yes or no questions. She is currently lethargic, not responding to any questions, responding very well to pain stimulus, they tried to draw some labs on her and she was screaming and moving her extremities, glucose 226 by EMS. Vitals on arrival to the ED O2 sats are 98% on 2 L of oxygen, blood pressure 112/51, heart rate 59, respiration 14. Previous admissions for encephalopathy. Unable to do a stroke scale on this patient. CT of the head is negative for any acute findings, chest x-ray is negative, troponin EKG and labs are negative. 1650 I reassessed patient myself, she is awake alert and answering yes/no questions, [facility] back to the jail. Pritesh Disclaimer: Pritesh Disclaimer: This electronic medical record was generated, in whole or in part, using a voice recognition dictation system. Departure Departure Impression: Primary Impression: ESRD (end stage renal disease) on dialysis Additional Impression: Decreased level of consciousness Disposition: HOME / SELF CARE / HOMELESS Condition: STABLE Referrals: UNKNOWN PCP NAME (PCP) Follow-up with your doctor in 1 week Patient Instructions: End Stage Kidney Disease Additional Instructions: You were evaluated in the emergency room, your work-up is negative for any acute findings. Please follow-up with your own doctor in the course of this week PAYAM JOSUE APRN Jul 07, 2021 15:41
[2021-07-07 16:24] LABS: BASO % 0 % (0-3); EOS # 0.3 x10^3/uL (0.0-0.7); EOS % 5 % (0-3); HEMATOCRIT 32.7 % (36.0-47.0); HEMOGLOBIN 10.5 g/dL (12.0-15.5); LYMPH # 1.3 x10^3/uL (1.0-4.8); LYMPH % 19 % (24-48); MEAN CORPUSCULAR HEMOGLOBIN 31 pg (25-35); MEAN CORPUSCULAR HGB CONC 32 g/dL (31-37); MEAN CORPUSCULAR VOLUME 96 fL (79-100); MONO # 0.8 x10^3/uL (0.0-1.1); MONO % 11 % (0-9); NEUT # 4.6 x10^3/uL (1.8-7.7); NEUT % 65 % (31-73); PLATELET COUNT 208 x10^3/uL (140-400); RED CELL DISTRIBUTION WIDTH 14.7 % (11.5-14.5); WHITE BLOOD COUNT 7.1 x10^3/uL (4.0-11.0)
[2021-07-07 16:34] LABS: CREATININE 9.2 mg/dL (0.6-1.0)
[2021-07-07 16:40] LABS: ALBUMIN 3.1 g/dL (3.4-5.0); ALBUMIN/GLOBULIN RATIO 0.8 (1.0-1.7); MAGNESIUM 2.9 mg/dL (1.8-2.4); TOTAL BILIRUBIN 0.3 mg/dL (0.2-1.0); TOTAL PROTEIN 6.9 g/dL (6.4-8.2)
[2021-07-07 17:31] VITALS: BP 108/48
--- NOTE | 2021-07-07 20:26 | EKG ---
[facility] [address] [place] [address] Test Date: 2021-07-07 Test Time: 15:02:03 Pat Name: JYOTI BARNEY Department: Room: Gender: F Lumite Injector: : 1940 Requested By: PYAAM JOSUE Order Number: [id number] Reading MD: Riley Santos Measurements Intervals [place] Rate: 57 P: [place]: QRS: -25 QRSD: 108 T: 0 QT: 444 QTc: 435 Interpretive Statements IRREGULAR RHYTHM, NO P-WAVE FOUND LEFTWARD AXIS NO SPECIFIC ECG ABNORMALITIES Electronically Signed On 07-08-2021 9:01:30 CLIENT ASSOCIATE by Riley Santos
--- NOTE | 2021-07-07 20:27 | EKG ---
[facility] [address] [place] [address] Test Date: 2021-07-07 Test Time: 15:00:49 Pat Name: JYOTI BARNEY Department: Room: Gender: F Doctor Of Radiology: : 1940 Requested By: PAYAM JOSUE Order Number: [id number] Reading MD: Riley Santos Measurements Intervals [place] Rate: 57 P: 45 [place]: 158 QRS: -28 QRSD: 118 T: 17 QT: 450 QTc: 441 Interpretive Statements SINIS RHYTHM ANTERIOR ST ELEVATION Electronically Signed On 07-08-2021 8:58:14 GAMER by Riley Santos
== END 2021-07-07 18:35 | disposition home or self-care (01) ==
LOC: ER 14:42
DX: N18.6 End stage renal disease (principal); Z99.2 Dependence on renal dialysis; R40.4 Transient alteration of awareness
CPT/HCPCS: 36415; 70450; 71045; 80053; 83605; 83735; 83880; 84145; 84484; 85025; 87040; 93005; 99285-25

== ENCOUNTER 2021-11-11 17:52 | Emergency (ER) | payer MEDICARE, OTHER ==
[~2021-11-11] VITALS: Ht 152.4 cm; Wt 50.9 kg
[~2021-11-11 17:52] MED LIST changes: +ASPI-630 PO; +CARV6.2511 PO; +CLONAZEPAM1 MG PO; +DIVA250T PO; +DONE10TA61 PO; +FLUO40CA9 PO; +LOPE2TAB27 PO; +MENT118G TP; +MIDO5TAB4 PO; +MIRT-36 PO; +PANT20TA2 PO
--- NOTE | 2021-11-11 18:33 | PHYS DOC ---
Past Medical History Past Medical History: Renal Failure, Unknown Additional Past Medical Histor: POOR HISTORIAN, hypotension, Iron deficiency anemia, ESRD, PVD, LBBB Past Surgical History: Other Additional Past Surgical Histo: DIALYSIS FISTULA LUE Smoking Status: Unknown if ever smoked Alcohol Use: None Drug Use: None General Adult EDM: Chief Complaint: SEIZURE HPI: HPI: 81-year-old female past medical history of dementia, ESRD, iron deficiency anemia, hypertension, GERD, hyperlipidemia, depression, hypothyroidism, presents the ED from [facility] dialysis clinic, s/p 2L removed, concern for seizure like activity while recieving dialysis. History and review of systems unable to be obtained by patient due to her dementia. History from EMS and RN-patient ripped out her dialysis needle and lost approximately 500 cc of blood. Was given NS bolus prior to ED arrival and hemostasis was achieved from pressure dressing placed over her right upper extremity by dialysis. I reviewed clinic paperwork - weight today is 55.8 kg, target weight is 52.7 kg. Review of Systems: Review of Systems: ROS unobtainable due to dementia Heart Score: C/O Chest Pain: N/A Risk Factors: Risk Factors: DM, Current or recent (<one month) smoker, HTN, HLP, family history of CAD, obesity. Risk Scores: Score 0 - 3: 2.5% MACE over next 6 weeks - Discharge Home Score 4 - 6: 20.3% MACE over next 6 weeks - Admit for Clinical Observation Score 7 - 10: 72.7% MACE over next 6 weeks - Early Invasive Strategies Allergies: Allergies: Allergies Coded Allergies Type Severity Reaction Last Updated Verified No Known Drug Allergies 09/13/21 No Physical Exam: PE: Constitutional: no acute distress, non-toxic appearance, resting comfortably in ED stretcher with no active complaints HENT: Normocephalic, atraumatic, Eyes: EOMI, conjunctiva normal, no discharge. Neck: Normal range of motion, supple, Cardiovascular: S1/2 present, regular rhythm Lungs & Thorax: Speaking in full sentences, bilateral equal chest rise, no tachypnea or increased work of breathing Abdomen: soft, no tenderness, Skin: Warm, dry, no erythema, no rash. [] Extremities: Right upper extremity AV fistula with pressure dressing -no active bleeding/minimal blood on dressing, equal radial pulses, no tenderness, no cyanosis, Neurologic: Alert, no focal deficits noted. [] Psychologic: Calm mood, no agitation Current Patient Data: Labs: Laboratory Tests Test 11/11/21 18:03 Glucose (Fingerstick) 162 mg/dL (70-99) H EKG: EKG: Sinus rhythm 74 bpm, left axis deviation, QTC 467, T wave inversion aVL, no ST elevation or ST depression Radiology/Procedures: Radiology/Procedures: IMAGING REPORT Signed PATIENT: JYOTI BARNEY ACCOUNT: [id number] : 1940 LOCATION: ER AGE: 81 SEX: F EXAM STATUS: REG ER ORD. PHYSICIAN: ERAN HIGGINBOTHAM MD REASON: apparent first time seizure PROCEDURE: CT HEAD WO CONTRAST CT HEAD INDICATION: First time seizure COMPARISON: 08/12/2021. Exposure: One or more of the following individualized dose reduction techniques were utilized for this examination: 1. Automated exposure control 2. Adjustment of the mA and/or kV according to patient size 3. Use of iterative reconstruction technique TECHNIQUE: 5 mm contiguous axial images were obtained from the skull base to the vertex in both bone and soft tissue algorithm. FINDINGS: Mild bilateral periventricular white matter hypodensities likely chronic small vessel ischemic disease. Small hypodensity left thalamus likely old infarct similar to prior exam. No evidence of acute intracranial hemorrhage. No extra-axial fluid collecti ons. No mass effect or midline shift. Ventricular size is appropriate. Basal cisterns are patent. No fractures identified.Kenny-white differentiation is preserved.Globes and orbits are within normal limits. Paranasal sinuses and mastoid air cells are c lear. IMPRESSION: No acute intracranial findings. Electronically signed by: Pacheco Nance MD (11/11/2021 6:55 PM) [id number] DICTATED and SIGNED BY: PACHECO NANCE MD DATE: 11/11/21 [id number] 0 IMAGING REPORT Signed PATIENT: JYOTI BARNEY ACCOUNT: [id number] : 1940 LOCATION: ER AGE: 81 SEX: F EXAM STATUS: PRE ER ORD. PHYSICIAN: ERAN HIGGINBOTHAM MD REASON: apparent first time seizure PROCEDURE: CHEST AP ONLY EXAMINATION: XR CHEST 1V CLINICAL HISTORY: First time seizure. EXAM DATE/TIME: 11/11/2021 6:30 PM COMPARISON: 09/13/2021 FINDINGS: Lines, Tubes, and Devices: None. Cardiomediastinal Silhouette: Normal heart size. Aortic atherosclerotic calcification. Lungs and Pleura: No evidence of focal airspace consolidation or pleural effusion. Pulmonary vasculature unremarkable. Bones and Soft Tissues: Chronic right rib fracture deformities. Median sternotomy wires and paramediastinal surgical clips. Cervical fusion hardware. Bilateral upper extremity endovascular stent grafts. IMPRESSION: No evidence of acute cardiopulmonary abnormality. Electronically signed by: Kyrie Marx DO (11/11/2021 6:48 PM) [facility] DICTATED and SIGNED BY: KYRIE MARX DO DATE: 11/11/21 [id number] Course & Med Decision Making: Course & Med Decision Making Pertinent Labs and Imaging studies reviewed. (See chart for details) Concern for seizure-like activity vs agitation in the setting of dementia, such that patient had removed her dialysis IV and sustained some blood loss. Hemostasis occurred prior to ED arrival. Patient hemodynamically stable with no tachycardia or hypotension. No active bleeding in the ED. No witnessed seizure-like activity in the ED. Patient acting appropriately given the setting of dementia. Serial cbcs showing anemia, same H/H 2 months ago. CTA head shows no traumatic injury or indication for seizure-like activity. Depakote level low-given for mood disorder. Concern for altered mental status, infection or persistent bleeding. Will discharge home with strict ED return precautions were given for seizures, altered mental status or brisk bleeding. Encouraged urgent outpatient follow-up with PMD for repeat evaluation. Life-threatening processes were considered but are low suspicion at this time, given history, physical exam and ED workup. Pt was educated on all prescription medications and adverse effects. All patient's questions were answered and pt was stable at time of discharge. Life/limb-threatening differential includes but is not limited to, thrombocytopenia, drug related adverse event, gastrointestinal bleeding, posterior epistaxis, hemorrhagic shock, DIC, life-threatening rash, arterial injury or trauma. I have spoken with the patient and/or caregivers. I explained the patient's condition, diagnoses and treatment plan based on the information available to me at this time. I have answered the patient and/or caregiver's questions and addressed any concerns. The patient and/or caregivers have a good understanding of patient's diagnosis, condition and treatment plan as can be expected at this point. Vital signs have been stable. Patient's condition is stable and appropriate for discharge from the emergency department. Patient will pursue further outpatient evaluation with primary care physician or other designated or consulting physician as outlined in the discharge instructions. The patient and/or caregivers are agreeable to this plan of care and follow-up instructions have been explained in detail. The patient and/or caregivers have received these instructions in written form and have expressed an understanding of the discharge instructions. The patient and/or caregivers are aware that any significant change of condition or worsening of symptoms should prompt immediate return to this or the closest emergency department or call to 1[facility] Disclaimer: Pritesh Disclaimer: This electronic medical record was generated, in whole or in part, using a voice recognition dictation system. Departure Departure Impression: Primary Impression: Seizure-like activity Additional Impression: Normocytic anemia Disposition: 01 HOME / SELF CARE / HOMELESS Condition: STABLE Referrals: NO PCP (PCP) Follow-up with your primary care physician in 24 to 48 hours OR FOLLOW UP WITH FAMILY MEDICINE: [address] [place] [address] Patient Instructions: AV Fistula, Care After, Anemia, Nonspecific-Brief, Dementia Additional Instructions: EMERGENCY DEPARTMENT GENERAL DISCHARGE INSTRUCTIONS Thank you for coming to [facility] Emergency Department (ED) today and trusting us with you care. We trust that you had a positive experience in our Emergency Department. If you wish to speak to the department management, you may call the Director at [phone]. YOUR FOLLOW UP INSTRUCTIONS ARE FOLLOWS: 1. Do you have a private Doctor? If you do not have a private doctor, please ask for a resource list of physicians or clinics that may be able to assist you with follow up care. 2. The Emergency Physicain has interpreted your x-rays. The X-Ray specialist will also review them. If there is a change in the findings, you will be notified in 48 hours when at all possible. 3. A lab test or culture has been done, your results will be reviewed and you will be notified if you need a change in treatment. ADDITIONAL INSTRUCTIONS AND INFORMATION: 1. Your care today has been supervised by a physician who is specially trained in emergency care. Many problems require more than one evaluation for a complete diagnosis and treatment. We recommend that you schedule your follow up appointment as recommended to ensure complete treatment of you illness or injury. If you are unable to obtain follow up care and continue to have a problem, or if your condition worsens, we recommend that you return to the ED. 2. We are not able to safely determine your condition over the phone nor are we able to give sound medical advice over the phone. For these safety reasons, if you call for medical advice we will ask you to come to the ED for further evaluation. 3. If you have any questions regarding these discharge instructions please call the ED at [phone]. SAFETY INFORMATION: In the interest of safety, wellness, and injury prevention; we encourage you to wear your sealbelt, if you smoke; quite smoking, and we encourage family to use a protective helmet for bicycling and other sporting events that present an increased risk for head injury. IF YOUR SYMPTOMS WORSEN OR NEW SYMPTOMS DEVELOP, OR YOU HAVE CONCERNS ABOUT YOUR CONDITION; OR IF YOUR CONDITION WORSENS WHILE YOU ARE WAITING FOR YOUR FOLLOW UP APPOINTMENT; EITHER CONTACT YOUR PRIMARY CARE DOCTOR, THE PHYSICIAN WHOSE NAME AND NUMBER YOU WERE GIVEN, OR RETURN TO THE ED IMMEDIATELY. DON HAM DO Nov 11, 2021 18:33
[2021-11-11 18:35] LABS: BASO % 1 % (0-3); EOS # 0.2 x10^3/uL (0.0-0.7); EOS % 4 % (0-3); HEMATOCRIT 32.7 % (36.0-47.0); HEMOGLOBIN 10.5 g/dL (12.0-15.5); LYMPH # 1.1 x10^3/uL (1.0-4.8); LYMPH % 26 % (24-48); MEAN CORPUSCULAR HEMOGLOBIN 31 pg (25-35); MEAN CORPUSCULAR HGB CONC 32 g/dL (31-37); MEAN CORPUSCULAR VOLUME 97 fL (79-100); MONO # 0.3 x10^3/uL (0.0-1.1); MONO % 7 % (0-9); NEUT # 2.6 x10^3/uL (1.8-7.7); NEUT % 63 % (31-73); PLATELET COUNT 198 x10^3/uL (140-400); RED BLOOD COUNT 3.37 x10^6/uL (3.50-5.40); RED CELL DISTRIBUTION WIDTH 15.6 % (11.5-14.5); WHITE BLOOD COUNT 4.1 x10^3/uL (4.0-11.0)
[2021-11-11 18:45] LABS: PROTHROMBIN TIME PATIENT 13.2 SEC (11.7-14.0)
--- NOTE | 2021-11-11 18:50 | RAD ---
EXAMINATION: XR CHEST 1V CLINICAL HISTORY: First time seizure. EXAM DATE/TIME: 11/11/2021 6:30 PM COMPARISON: 09/13/2021 FINDINGS: Lines, Tubes, and Devices: None. Cardiomediastinal Silhouette: Normal heart size. Aortic atherosclerotic calcification. Lungs and Pleura: No evidence of focal airspace consolidation or pleural effusion. Pulmonary vasculat ure unremarkable. Bones and Soft Tissues: Chronic right rib fracture deformities. Median sternotomy wires and paramedia stinal surgical clips. Cervical fusion hardware. Bilateral upper extremity endovascular stent grafts. IMPRESSION: No evidence of acute cardiopulmonary abnormality. Electronically signed by: Kyrie Garcia DO (11/11/2021 6:48 PM) [facility]
--- NOTE | 2021-11-11 18:57 | RAD ---
CT HEAD INDICATION: First time seizure COMPARISON: 08/12/2021. Exposure: One or more of the following individualized dose reduction techniques were utilized for thi s examination: 1. Automated exposure control 2. Adjustment of the mA and/or kV according to patient size 3. Use of iterative reconstruction technique TECHNIQUE: 5 mm contiguous axial images were obtained from the skull base to the vertex in both bone and soft tissue algorithm. FINDINGS: Mild bilateral periventricular white matter hypodensities likely chronic small vessel ischemic diseas e. Small hypodensity left thalamus likely old infarct similar to prior exam. No evidence of acute intracranial hemorrhage. No extra-axial fluid collections. No mass effect or midline shift. Ventricular size is appropriate. Basal cisterns are patent. No fractures identified.Kenny-white differentiation is preserved.Globes and orbits are within normal l imits. Paranasal sinuses and mastoid air cells are clear. IMPRESSION: No acute intracranial findings. Electronically signed by: Pacheco Nance MD (11/11/2021 6:55 PM) [id number]
[2021-11-11 19:01] LABS: CALCIUM 8.5 mg/dL (8.5-10.1); CREATININE 6.5 mg/dL (0.6-1.0); GFR 7.5; POTASSIUM 4.7 mmol/L (3.5-5.1)
[2021-11-11 19:06] LABS: VAL ACID 9 mcg/mL (50-100)
[2021-11-11 19:07] LABS: ALBUMIN 3.8 g/dL (3.4-5.0); MAGNESIUM 2.3 mg/dL (1.8-2.4); PHOSPHORUS 3.7 mg/dL (2.6-4.7); TOTAL BILIRUBIN 0.3 mg/dL (0.2-1.0); TOTAL PROTEIN 7.7 g/dL (6.4-8.2)
[2021-11-11 22:11] VITALS: BP 96/45
[2021-11-11 22:32] LABS: HEMATOCRIT 29.7 % (36.0-47.0); HEMOGLOBIN 9.6 g/dL (12.0-15.5); RED BLOOD COUNT 3.09 x10^6/uL (3.50-5.40); RED CELL DISTRIBUTION WIDTH 15.6 % (11.5-14.5); WHITE BLOOD COUNT 6.8 x10^3/uL (4.0-11.0)
--- NOTE | 2021-11-12 10:44 | EKG ---
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
== END 2021-11-12 00:23 | disposition home or self-care (01) ==
LOC: ER 17:52
DX: R56.9 Unspecified convulsions (principal); D64.9 Anemia, unspecified; I12.0 Hypertensive chronic kidney disease with stage 5 chronic kidney disease or end stage renal disease; N18.6 End stage renal disease; Z99.2 Dependence on renal dialysis; K21.9 Gastro-esophageal reflux disease without esophagitis; E03.9 Hypothyroidism, unspecified; F03.90 Unspecified dementia, unspecified severity, without behavioral disturbance, psychotic disturbance, mood disturbance, and anxiety
CPT/HCPCS: 36415; 70450; 71045; 80053; 80164; 82550; 82962; 83735; 84100; 84484; 85025; 85027; 85610; 85730; 93005; 99285-25